=== PATIENT | male | born 1940 | race American Indian/Alaskan Native ===

== ENCOUNTER 2021-07-16 07:24 | Day surgery (SDC) | payer MEDICARE ==
--- NOTE | 2021-07-11 10:02 | Anesthesia Consultation ---
Anesthesia Consult and Med Hx Date of service: 07/11/21 - Airway Anesthetic Teeth Evaluation: Good (some missing teeth), Partials (lower) ROM Head & Neck: Adequate Mental/Hyoid Distance: Adequate Mallampati Class: Class II Intubation Access Assessment: Probably Good - Pre-Operative Health Status ASA Pre-Surgery Classification: ASA2 Proposed Anesthetic Plan: General - Pulmonary Hx Smoking: Yes (quit smoking 12 years ago) Hx Pneumonia: Yes (had COVID-19 2019, recovered, fully vaccinated after) - Cardiovascular System Hx Hypertension: Yes Hx Coronary Artery Disease: No (high cholesterol) - Central Nervous System Hx Back Pain: Yes Hx Psychiatric Problems: No - Endocrine Hx Renal Disease: No (enlarged prostate) - Other Systems Hx Alcohol Use: Yes (OCCASSIONALLY) Hx Substance Use: No Hx Cancer: No
[2021-07-11 10:36] LABS: Hematocrit 41.1 % (35.5-45.6); Hemoglobin 13.3 gm/dl (11.8-15.2); Mean Corpuscular HGB Conc 32 % (32-34); Mean Corpuscular Volume 94 fl (84-94); Platelet Count 121 K/mm3 (140-440); Red Blood Count 4.37 M/mm3 (3.65-5.03); Red Cell Distribution Width 13.3 % (13.2-15.2)
[2021-07-11 10:54] LABS: BUN/Creatinine Ratio 13; Blood Urea Nitrogen 13 mg/dL (9-20); Calcium 9.1 mg/dL (8.4-10.2); Hemolysis Index 2
--- NOTE | 2021-07-12 13:05 | Electrocardiograph Report ---
[facility] Test Date: 2021-07-11 Test Time: 10:11:34 Pat Name: KRISTIN DEL VALLE JR Department: Room: Gender: M Jazz Musician: AMY : 1940 Requested By: VAL HOGAN Order Number: [id number] Reading MD: Merly Moseley Measurements Intervals Burton Rate: 75 P: 83 GA: 138 QRS: 60 QRSD: 83 T: 54 QT: 368 QTc: 410 Interpretive Statements Sinus rhythm No previous ECG available for comparison Electronically Signed On 07-12-2021 13:05:22 EST by Merly Moseley
[~2021-07-16 07:24] MED LIST: ACETAMINOPHEN 325 MG TAB PO ONE; ACETAMINOPHEN 325 MG TAB PO SCH; CELECOXIB 200 MG CAP PO SCH; FAMOTIDINE 20 MG/2 ML INJ IV SCH; GABAPENTIN 500 MG/10 ML ORAL LIQD PO SCH; LACTATED RINGERS 1,000 ML IV SCH; ceFAZolin/STERILE WATER 2 GM/20 ML SYRINGE IV NR
[2021-07-16] MEDS ORDERED: BUPIVACAINE/PF (0.5%) 5 MG/1 ML 30 ML VIAL INFILTRATI ONE ×2 (08:35→13:28)
[2021-07-16] MEDS ORDERED: LIDOCAINE (1%) 10 MG/1 ML VIAL 20 ML MDV ONE (08:35)
--- NOTE | 2021-07-16 08:52 | Anesthesia Day of Surgery ---
Anesthesia Day of Surgery - Day of Surgery Patient Examined: Yes Patient H&P Reviewed: Yes Patient is NPO: Yes
[2021-07-16] MEDS ORDERED: ONDANSETRON 4 MG/2 ML INJ IV PRN (08:53)
[2021-07-16] MEDS ORDERED: MAGNESIUM OXIDE 400 MG TAB PO NR (08:53)
[2021-07-16] MEDS ORDERED: HYDROmorphone 1 MG/1 ML INJ IV PRN ×2 (08:53)
[2021-07-16] MEDS ORDERED: CELECOXIB 200 MG CAP PO NR (09:00)
[2021-07-16] MEDS ORDERED: LIDOCAINE MPF (2%) 20 MG/1 ML VIAL 5 ML ONE (10:02)
[2021-07-16] MEDS ORDERED: fentaNYL 100 MCG/2 ML INJ ONE (10:02)
[2021-07-16] MEDS ORDERED: propofoL 200 MG/20 ML VIAL IV ONE (10:03)
[2021-07-16] MEDS ORDERED: NEOSTIGMINE 10MG/10 ML INJ MDV ONE (10:04)
[2021-07-16] MEDS ORDERED: GLYCOPYRROLATE 0.4 MG/2 ML INJ ONE (10:04)
[2021-07-16] MEDS ORDERED: ROCURONIUM 50 MG/5 ML INJ IV ONE (10:04)
[2021-07-16] MEDS ORDERED: ONDANSETRON 4 MG/2 ML INJ ONE (10:04)
[2021-07-16] MEDS ORDERED: dexAMETHasone 20 MG/5 ML VIAL ONE (10:04)
[2021-07-16] MEDS ORDERED: ePHEDrine SULFATE 50 MG/1 ML INJ ONE (13:12)
[2021-07-16] MEDS ORDERED: LIDOCAINE (1%) 10 MG/1 ML VIAL 20 ML MDV INFILTRATI ONE (13:28)
[2021-07-16] MEDS ORDERED: WATER FOR IRRIG STERILE 1,500 ML BOTTLE IR ONE (13:29)
[2021-07-16] MEDS ORDERED: KETOROLAC 30 MG/1 ML INJ ONE (13:49)
--- NOTE | 2021-07-16 14:04 | Short Stay Summary ---
Short Stay Documentation Date of service: 07/16/21 - History Principal diagnosis: left inguinal hernia H&P: obtained from office - Allergies and Medications Current Medications: Allergies No Known Allergies Allergy (Verified 07/08/21 17:33) Home Medications Medication Instructions Recorded Confirmed Last Taken Type Amlodipine Besylate 5 mg PO DAILY 07/08/21 07/08/21 07/15/21 History Aspirin [Aspirin BABY CHEW TAB] 81 mg PO QDAY 07/08/21 07/16/21 07/12/21 History Atorvastatin Calcium [Lipitor] 40 mg PO HS 07/08/21 07/08/21 07/15/21 History Tamsulosin [Flomax] 0.4 mg PO QDAY 07/08/21 07/16/21 07/15/21 History Active Medications Acetaminophen (Acetaminophen 325 Mg Tab) 650 mg PO PREOP ADIA Last Admin: 07/16/21 08:45 Dose: 650 mg Cefazolin Sodium (Cefazolin/Sterile Water 2 Gm/20 Ml Syringe) 2 gm IV PREOP NR Stop: 07/16/21 23:59 Celecoxib (Celecoxib 200 Mg Cap) 200 mg PO PREOP NR Stop: 07/16/21 20:00 Last Admin: 07/16/21 09:00 Dose: 200 mg Hydromorphone HCl (Hydromorphone 1 Mg/1 Ml Inj) 0.25 mg IV Q10MIN PRN PRN Reason: Pain, Moderate (4-6) Stop: 07/16/21 20:00 Hydromorphone HCl (Hydromorphone 1 Mg/1 Ml Inj) 0.5 mg IV Q10MIN PRN PRN Reason: Pain , Severe (7-10) Stop: 07/16/21 20:00 Lactated Ringer's (Lactated Ringers) 1,000 mls @ 75 mls/hr IV DIRECT ADIA Last Admin: 07/16/21 08:30 Dose: 75 mls/hr Magnesium Oxide (Magnesium Oxide 400 Mg Tab) 400 mg PO ONCE NR Stop: 07/16/21 20:00 Last Admin: 07/16/21 09:00 Dose: 400 mg Methocarbamol (Methocarbamol 750 Mg Tab) 1,500 mg PO ONCE NR Stop: 07/16/21 20:00 Last Admin: 07/16/21 10:13 Dose: 1,500 mg Ondansetron HCl (Ondansetron 4 Mg/2 Ml Inj) 4 mg IV ONCE PRN PRN Reason: Nausea And Vomiting Stop: 07/16/21 20:00 - Brief post op/procedure progress note Date of procedure: 07/16/21 Pre-op diagnosis: left inguinal hernia Post-op diagnosis: same Procedure: Robotic assisted left inguinal hernia repair with mesh Anesthesia: GETA, local, other (left ilioinguinal nerve block) Findings: Small direct left inguinal hernia. Repaired with large left 3D max mesh. Intact right inguinal hernia repair Surgeon: VAL HOGAN Alarm Field Technician: VJ DUMONT Estimated blood loss: minimal Pathology: none Condition: stable - Hospital course Hospital course: Patient observed in PACU and discharged home in stable condition when criteria met - Disposition Condition at discharge: Good Disposition: 01 HOME / SELF CARE / HOMELESS Short Stay Discharge Plan Activity: other (No heavy lifting of more than 15 pounds for the next 6 weeks) Diet: low fat Wound: open to air, per your surgeon's advice Additional Instructions: See printed paperwork Follow up with: SARI PAZ MD [Primary Care Provider] - 7 Days VAL HOGAN DO [Staff Physician] - 14 Days Prescriptions: Gabapentin 300 mg PO BID #6 cap Ibuprofen [Motrin] 800 mg PO Q8HR PRN #30 tablet PRN Reason: Pain, Moderate (4-6) HYDROcodone/APAP 5-325 [Brooks 5/325] 1 each PO Q6HR PRN #20 tablet PRN Reason: Pain , Severe (7-10)
[2021-07-16] MEDS ORDERED: ALBUTEROL 8.5 GM MDI INHALATION IH ONE (14:09)
--- NOTE | 2021-07-16 14:51 | Post Anesthesia Evaluation ---
- Post Anesthesia Evaluation Patient Participated: Yes Airway Patent: Yes Stable Respiratory Function: Yes Nausea/Vomiting: No Temp > 96.8F: Yes Pain Manageable: Yes Adequeate Hydration: Yes Anesthesia Complications: Yes Block Receding Appropriately: Not Applicable Patient on Ventilator: No
[2021-07-16 16:53] VITALS: BP 118/72
--- NOTE | 2021-07-17 14:36 | Operative Report ---
Operative Report Operative Report: Date of procedure: 07/16/21 Pre-op diagnosis: left inguinal hernia Post-op diagnosis: same Procedure: Robotic assisted left inguinal hernia repair with mesh Anesthesia: GETA, local, other (left ilioinguinal nerve block) Findings: Small direct left inguinal hernia. Repaired with large left 3D max mesh. Intact right inguinal hernia repair Surgeon: VAL HOGAN Batch Blender: VJ DUMONT Estimated blood loss: minimal Pathology: none Condition: stable Hospital course: Patient observed in PACU and discharged home in stable condition when criteria met HPI and indication: Patient is a 81-year-old male who was referred to the surgery clinic for a bulge in the left groin. He was found to have a left inguinal hernia on physical exam. It was recommended that the hernia be repaired. I discussed all risk, benefits, alternatives to repair with the patient and questions were answered. I explained that if the hernia was found on the right side at the same time, this would be fixed as well. The patient was agreeable. Consent obtained for robotic assisted left inguinal hernia repair with mesh, possible right, possible open. Procedure in detail: Patient was identified in the preoperative area, take back to operating room placed on operative table in supine position. After anesthesia was induced both arms were tucked and all bony prominences padded appropriately. A Eubanks catheter was sterilely placed by the circulating nurse. The abdomen and b/l groins were then prepped and draped in usual sterile fashion and a timeout performed. Local anesthetic was infiltrated to skin at the inten ded incision sites. A supraumbilical incision was made through which a Veress needle was inserted. Veress needle positioning was confirmed using saline drop test and the abdomen insufflated to 15 mmHg. Once the abdomen was insufflated, the Veress needle was removed and a 5 mm Optiview trocar was placed as incision. The abdomen is inspected there was no underlying injury to any of the abdominal structures. Patient was placed in Trendelenburg and the pelvis examined. There was a left inguinal hernia and no obvious hernia on the right. At this point, an 8 mm right upper quadrant and left upper quadrant robotic trocars were then placed under direct visualization. The 5 mm supraumbilical trocar was removed and replaced with a 12 mm balloon trocar under direct visualization. A Ray-Lizzie was placed into the abdomen. The robot was then docked. A fenestrated bipolar was placed into arm #2 and a monopolar scissor in arm #1. The surgeon was then transferred to the console. First, I created a left sided preperitoneal flap. The peritoneum was scored approximately 5 to 6 cm from the hernia defect. The peritoneum was then incised from the midline to the ASIS. The preperitoneal flap was then developed in an avascular plane. I first defined the medial margin by dissecting to the pubic tubercle. The pubic tubercle was cleared of overlying fatty tissue using blunt dissection. I then created the lateral margin in a similar fashion. Great care was taken to avoid injury to any nerves. There was a direct inguinal hernia and the hernia sac was gently reduced using blunt dissection and transecting cremasteric fibers with electrocautery. During the dissection, the cord structures were identified and protected. The cord structures and vas deferens were visualized throughout the entire dissection. Once the hernia sac was completely reduced, the peritoneal flap was checked for hemostasis. Any additional cremasteric fibers that were were tenting up the peritoneum were divided. Hemostasis was carefully ensured. The hernia was repaired using a LEFT large 3D max mesh. The mesh along with suture material was placed into the abdomen by the sales assistant. The mesh was positioned into the preperitoneal flap in the usual fashion. The medial portion of the mesh was sutured to Wilfrido's ligament using an interrupted 2-0 Vicryl stitch. The lateral aspect of the mesh was sutured to the anterior lateral abdominal wall using a 2-0 Vicryl interrupted stitch. The mesh was seen to lay flat in the pocket with excellent coverage. The peritoneum was then reapproximated using 3-0 running V-Loc stitch. The entirety of the mesh was covered with peritoneum. The robot was then undocked and the surgeon scrubbed back in. The remainder of the case was performed laparoscopically. All sharp materials along with a Ray-Lizzie were removed from the abdomen under direct visualization. The 12 mm port was removed and the fascia closed using a interrupted 0 Vicryl stitch. The abdomen was then slowly desufflated and the mesh was seen to lay flat in the preperitoneal space. The remaining trocars were removed. Skin incisions were once again infiltrated with local anesthetic. LEFT i lioinguinal nerve block was also performed with 5 cc of local anesthetic. The skin incisions were approximated with 4-0 Monocryl subcuticular stitches and skin glue. At the end of the case all sponge, instrument, sharp counts were correct x2. Patient was awoken from anesthesia and Eubanks catheter removed. Both testicles were palpated in the scrotum in anatomic position. The patient was taken to PACU in stable condition.
== END 2021-07-16 15:45 | disposition home or self-care (01) ==
LOC: OR 07:24
PROVIDERS: ATTEND Surgery
DX: K40.90 Unilateral inguinal hernia, without obstruction or gangrene, not specified as recurrent (principal); I10 Essential (primary) hypertension; K21.9 Gastro-esophageal reflux disease without esophagitis; N40.0 Benign prostatic hyperplasia without lower urinary tract symptoms; Z87.891 Personal history of nicotine dependence; Z79.82 Long term (current) use of aspirin; Z79.899 Other long term (current) drug therapy; Z98.890 Other specified postprocedural states; Z20.822 Contact with and (suspected) exposure to COVID-19
CPT/HCPCS: 36415; 49650; 80048; 85027; 93005; C1781; J0690; J1100; J1815; J1885; J2405; J2704; J2710; J3010; J3490; J7120; U0003